=== PATIENT | female | born 1980 | race African-American/Black ===

== ENCOUNTER 2018-06-06 17:07 | Emergency (ER) | payer BC, OTHER ==
[~2018-06-06] VITALS: Ht 160 cm; Wt 77.1 kg
[~2018-06-06 17:07] MED LIST: ALPR1TAB7 PO; CETI-102 PO; CYCL10TA9 PO; LISI-603 PO; SERT100T PO; ZOLP12.52 PO
--- NOTE | 2018-06-06 17:19 | NUR ---
PT IS IN ROOM #2A. DR NIETO EVALUATED THE PT.
[2018-06-06] MEDS ORDERED: predniSONE 50 MG TABLET ONE (17:29)
[2018-06-06] MEDS ORDERED: IPRATROPIUM BROMIDE 0.5 MG/2.5 ML NEBU NEB ONE (17:30)
[2018-06-06] MEDS ORDERED: predniSONE 10 MG TABLET PO ONE (17:30)
[2018-06-06] MEDS ORDERED: ALBUTEROL SULFATE 2.5 MG/3 ML NEBU NEB ONE (17:30)
[2018-06-06] MEDS ORDERED: predniSONE 10 MG TABLET ONE (17:30)
[2018-06-06] MEDS ORDERED: IPRATROPIUM BROMIDE 0.5 MG/2.5 ML NEBU ONE (17:31)
[2018-06-06] MEDS ORDERED: ALBUTEROL SULFATE 2.5 MG/3 ML NEBU ONE (17:31)
--- NOTE | 2018-06-06 19:23 | NUR ---
Patient discharged to home in stable conditon. Written and verbal after care instructions given. Patient verbalizes understanding of instructions. Ambulated from ER with stable gait. VSS. All belongings with patient.
[2018-06-06 19:24] VITALS: BP 141/87
== END 2018-06-06 19:25 | disposition home or self-care (01) ==
LOC: ER 17:07
DX: J45.909 Unspecified asthma, uncomplicated (principal); I10 Essential (primary) hypertension; Z91.012 Allergy to eggs; Z91.013 Allergy to seafood
CPT/HCPCS: 94644; 99285; J7512 ×2; A4663; J3590

== ENCOUNTER 2019-12-26 10:50 | Emergency (ER) | payer OTHER ==
[~2019-12-26] VITALS: Ht 167.6 cm; Wt 113.4 kg
[~2019-12-26 10:50] MED LIST changes: -CETI-102 PO; +CETI-110 PO
--- NOTE | 2019-12-26 11:00 | NUR ---
PATIENT WAS MSE BY DR NAYLOR IN ROOM 01B. PATIENT A & O X4.
[2019-12-26] MEDS ORDERED: predniSONE 20 MG TABLET ONE (11:14)
--- NOTE | 2019-12-26 11:14 | NUR ---
MINISTERIO CORDOVA AT BEDSIDE WITH PATIENT FOR INHALTION TX.
[2019-12-26] MEDS ORDERED: ALBUTEROL SULFATE 2.5 MG/3 ML NEBU ONE (11:15)
[2019-12-26] MEDS ORDERED: predniSONE 20 MG TABLET PO ONE (11:15)
[2019-12-26] MEDS ORDERED: ALBUTEROL SULFATE 2.5 MG/3 ML NEBU NEB ONE (11:15)
--- NOTE | 2019-12-26 11:43 | NUR ---
Patient discharged to home in stable condition. Written and verbal after care instructions given. Patient verbalizes understanding of instructions. Stressed follow up or return to ER for worsening s/s.
[2019-12-26 11:45] VITALS: BP 141/89
== END 2019-12-26 11:46 | disposition home or self-care (01) ==
LOC: ER 10:50
DX: J45.901 Unspecified asthma with (acute) exacerbation (principal); I10 Essential (primary) hypertension; F41.9 Anxiety disorder, unspecified; Z79.899 Other long term (current) drug therapy; Z91.012 Allergy to eggs; Z91.013 Allergy to seafood; Z83.3 Family history of diabetes mellitus; Z82.49 Family history of ischemic heart disease and other diseases of the circulatory system
CPT/HCPCS: 94640; 99283; J7512; A4663